=== PATIENT | male | born 1975 | race Caucasian/White ===

== ENCOUNTER 2016-12-04 12:14 | Day surgery (SDC) | payer MEDICAID | END 2016-12-04 13:04 | disposition short-term general hospital (02) | LOC: SURGOP 12:14 | PROC: 3E0R33Z Introduction of Anti-inflammatory into Spinal Canal, Percutaneous Approach (ICD-10-PCS; principal; 2016-12-04) | PROC: 3E0R3BZ Introduction of Anesthetic Agent into Spinal Canal, Percutaneous Approach (ICD-10-PCS; 2016-12-04) | DX: M54.16 Radiculopathy, lumbar region (principal) | CPT/HCPCS: J1100; Q9967 ==

== ENCOUNTER → 2017-01-01 | Outpatient (CLI) | payer MEDICAID | END | disposition short-term general hospital (02) | LOC: CLPAIN 10:12 | DX: M51.16 Intervertebral disc disorders with radiculopathy, lumbar region (principal); M51.17 Intervertebral disc disorders with radiculopathy, lumbosacral region; M25.552 Pain in left hip ==